=== PATIENT | male | born 1965 | race African-American/Black ===

== ENCOUNTER 2020-11-20 10:23 | Emergency (ER) | payer MEDICAID ==
[~2020-11-20] VITALS: Ht 172.7 cm; Wt 82.0 kg
[2020-11-20] MEDS ORDERED: SODIUM CHLORIDE 0.9% 1,000 ML IV ONE (11:00)
[2020-11-20 11:08] LABS: CHLORIDE 106 mEq/L (98-107)
[2020-11-20 11:12] LABS: HEMATOCRIT. 27.7 % (42.0-52.0); MEAN CORPUSCULAR HEMOGLOBIN 23.3 pg (28.0-32.0); MEAN CORPUSCULAR VOLUME 71.5 fL (80.0-94.0); MEAN PLATELET VOLUME 8.6 fl (7.4-10.4); PLATELET 105 x1000/uL (130-400); RED BLOOD CELL COUNT 3.88 mill/uL (4.7-6.1)
[2020-11-20 11:33] LABS: ETHANOL BLOOD 464 mg/dL
[2020-11-20 12:42] LABS: METHADONE URINE SCREEN NEGATIVE (NEGATIVE); OPIATES URINE SCREEN NEGATIVE (NEGATIVE)
[2020-11-20 12:43] LABS: *AMPHETAMINES SCREEN URINE NEGATIVE (NEGATIVE); *BARBITURATES SCREEN URINE NEGATIVE (NEGATIVE); *BENZODIAZEPINES SCREEN URINE NEGATIVE (NEGATIVE); *COCAINE SCREEN URINE NEGATIVE (NEGATIVE); CANNABINOID URINE SCREEN NEGATIVE (NEGATIVE)
[2020-11-20 12:44] LABS: PHENCYCLIDINE URINE SCREEN NEGATIVE (NEGATIVE)
[2020-11-20 12:44] LABS: PLATELET ESTIMATE DECREASED
[2020-11-20] MEDS ORDERED: HYDR-4001 MT (13:44)
[2020-11-20] MEDS ORDERED: IBUP-2028 MT (13:44)
[2020-11-20 17:47] VITALS: BP 117/78
== END 2020-11-20 18:25 | disposition home or self-care (01) ==
LOC: EDBD 10:23 → ER 10:23
DX: F10.129 Alcohol abuse with intoxication, unspecified (principal); Y90.8 Blood alcohol level of 240 mg/100 ml or more; S22.31XA Fracture of one rib, right side, initial encounter for closed fracture; W01.0XXA Fall on same level from slipping, tripping and stumbling without subsequent striking against object, initial encounter; Y93.89 Activity, other specified; Y92.89 Other specified places as the place of occurrence of the external cause
CPT/HCPCS: 36415; 70450; 71101; 72125; 80053; 80305; 80320; 85025; 93005; 96360; 96361; 99285; J7030; G0480

== ENCOUNTER 2024-07-07 13:10 | Emergency (ER) | payer MEDICAID ==
[~2024-07-07] VITALS: Ht 170.2 cm; Wt 73.0 kg
[~2024-07-07 13:10] MED LIST: HYDR-4001 MT; IBUP-2028 MT
[2024-07-07 13:13] VITALS: PULSE 92; TEMP 36.6; O2SAT 99
[2024-07-07 14:06] VITALS: BP 108/72; RESP 18
[2024-07-07] MEDS: LIDOCAINE 5% PATCH TOP SCH (14:06)
== END 2024-07-07 14:00 | disposition home or self-care (01) ==
LOC: ER 13:10
DX: F10.129 Alcohol abuse with intoxication, unspecified (principal); F20.9 Schizophrenia, unspecified; Y90.9 Presence of alcohol in blood, level not specified
CPT/HCPCS: 99283

== ENCOUNTER 2024-07-30 17:34 | Emergency (ER) | payer MEDICAID, OTHER ==
[~2024-07-30] VITALS: Ht 170.2 cm; Wt 70.0 kg
[2024-07-30 17:37] VITALS: O2SAT 100
[2024-07-30] MEDS ORDERED: METH-653 MT (20:33)
[2024-07-30] MEDS ORDERED: IBUP-2029 MT (20:33)
[2024-07-30 20:46] VITALS: BP 116/86; PULSE 85; RESP 16; TEMP 37.2; O2SAT 98
== END 2024-07-30 20:52 | disposition home or self-care (01) ==
LOC: ER 17:34
DX: S33.5XXA Sprain of ligaments of lumbar spine, initial encounter (principal); Z79.899 Other long term (current) drug therapy; Z86.59 Personal history of other mental and behavioral disorders; X58.XXXA Exposure to other specified factors, initial encounter; Y93.89 Activity, other specified; Y92.89 Other specified places as the place of occurrence of the external cause; Y99.8 Other external cause status
CPT/HCPCS: 99283

== ENCOUNTER 2024-08-29 00:36 | Emergency (ER) | payer OTHER ==
[~2024-08-29] VITALS: Ht 177.8 cm; Wt 85.0 kg
[~2024-08-29 00:36] MED LIST changes: +IBUP-2029 MT; +METH-653 MT
[2024-08-29 00:45] VITALS: BP 136/80; PULSE 78; RESP 16; TEMP 36.4; O2SAT 98
[2024-08-29 03:07] LABS: HEMATOCRIT. 29.6 % (42.0-52.0); HEMOGLOBIN. 9.5 g/dL (14.0-18.0); MEAN CORPUSCULAR HEMOGLOBIN 23.6 pg (28.0-32.0); MEAN CORPUSCULAR HGB CONC 32.1 g/dL (31.0-37.0); MEAN CORPUSCULAR VOLUME 73.5 fL (80.0-94.0); MEAN PLATELET VOLUME 7.2 fl (7.4-10.4); PLATELET 166 x1000/uL (130-400); RED BLOOD CELL COUNT 4.03 mill/uL (4.7-6.1); RED CELL DISTRIBUTION WIDTH 20.9 % (11.6-14.6); WHITE BLOOD COUNT 3.9 x1000/uL (4.5-11.0)
[2024-08-29 03:17] LABS: PROTHROMBIN TIME 10.7 sec (9.6-11.0)
[2024-08-29 03:21] LABS: CHLORIDE 106 mEq/L (98-107); POTASSIUM 3.8 mEq/L (3.5-5.1); SODIUM 141 mEq/L (136-145)
[2024-08-29 03:22] LABS: CALCIUM 8.7 mg/dL (8.7-10.4); CARBON DIOXIDE 25 mEq/L (21-32)
[2024-08-29 03:24] LABS: DIFFERENTIAL COMMENT 1
[2024-08-29 03:27] LABS: CREATININE 0.8 mg/dL (0.6-1.3); GLUCOSE 103 mg/dL (70-105); UREA NITROGEN BLOOD 8 mg/dL (9-23)
[2024-08-29 03:28] LABS: ETHANOL BLOOD 300 mg/dL (<10); TROPONIN I HIGH SENSITIVITY 5 ng/L (3.0-53)
[2024-08-29 03:29] LABS: ALANINE AMINOTRANSFERASE 61 IU/L (10-49); ASPARTATE AMINOTRANSFERASE 68 IU/L (<34)
[2024-08-29 03:30] LABS: BILIRUBIN TOTAL 0.3 mg/dL (0.1-1.0); PROTEIN TOTAL 7.5 g/dL (6.0-8.3)
[2024-08-29 04:16] LABS: BILIRUBIN DIRECT < 0.1 mg/dL (<=3.0)
[2024-08-29 16:56] LABS: ANISOCYTOSIS 1+; HYPOCHROMASIA 1+; MICROCYTOSIS 2+; PLATELET ESTIMATE NORMAL
== END 2024-08-29 05:07 | disposition home or self-care (01) ==
LOC: ER 00:42
DX: F10.129 Alcohol abuse with intoxication, unspecified (principal); D64.9 Anemia, unspecified; F20.9 Schizophrenia, unspecified; I25.2 Old myocardial infarction; J44.9 Chronic obstructive pulmonary disease, unspecified; Y90.8 Blood alcohol level of 240 mg/100 ml or more
CPT/HCPCS: 36415; 71045; 80048; 80076; 80320; 83880; 84484; 85025; 86850; 86900; 93005; 99285; G0480

== ENCOUNTER 2024-08-29 23:39 | Emergency (ER) | payer OTHER ==
[~2024-08-29] VITALS: Ht 175.3 cm; Wt 76.0 kg
[2024-08-29 23:45] VITALS: BP 129/89; PULSE 70; RESP 20; TEMP 36.5; O2SAT 98
== END 2024-08-30 07:25 | disposition left against medical advice (07) ==
LOC: ER 23:39
DX: M79.606 Pain in leg, unspecified (principal); Z53.21 Procedure and treatment not carried out due to patient leaving prior to being seen by health care provider

== ENCOUNTER 2024-09-09 18:06 | Emergency (ER) | payer OTHER ==
[~2024-09-09] VITALS: Ht 175.3 cm; Wt 74.0 kg
[2024-09-09 18:07] VITALS: O2SAT 99
[2024-09-09 19:03] LABS: CHLORIDE 110 mEq/L (98-107); SODIUM 143 mEq/L (136-145)
[2024-09-09 19:04] LABS: CARBON DIOXIDE 24 mEq/L (21-32)
[2024-09-09 19:05] LABS: HEMATOCRIT. 29.3 % (42.0-52.0); HEMOGLOBIN. 9.3 g/dL (14.0-18.0); MEAN CORPUSCULAR HEMOGLOBIN 23.8 pg (28.0-32.0); MEAN CORPUSCULAR HGB CONC 31.7 g/dL (31.0-37.0); MEAN CORPUSCULAR VOLUME 75.1 fL (80.0-94.0); MEAN PLATELET VOLUME 7.6 fl (7.4-10.4); PLATELET 210 x1000/uL (130-400); RED BLOOD CELL COUNT 3.91 mill/uL (4.7-6.1); RED CELL DISTRIBUTION WIDTH 20.5 % (11.6-14.6); WHITE BLOOD COUNT 3.7 x1000/uL (4.5-11.0)
[2024-09-09 19:09] LABS: CREATININE 0.9 mg/dL (0.6-1.3); GLUCOSE 97 mg/dL (70-105); UREA NITROGEN BLOOD 7 mg/dL (9-23)
[2024-09-09 19:12] LABS: DIFFERENTIAL COMMENT 1
[2024-09-09 19:22] LABS: ETHANOL BLOOD 444 mg/dL (<10)
[2024-09-09 19:31] LABS: *AMPHETAMINES SCREEN URINE NEGATIVE (NEGATIVE); *BARBITURATES SCREEN URINE NEGATIVE (NEGATIVE); *BENZODIAZEPINES SCREEN URINE NEGATIVE (NEGATIVE); *COCAINE SCREEN URINE NEGATIVE (NEGATIVE)
[2024-09-09 19:32] LABS: CANNABINOID URINE SCREEN NEGATIVE (NEGATIVE); ECSTASY MDMA SCREEN URINE NEGATIVE (NEGATIVE); METHADONE URINE SCREEN NEGATIVE (NEGATIVE); OPIATES URINE SCREEN NEGATIVE (NEGATIVE); PHENCYCLIDINE URINE SCREEN NEGATIVE (NEGATIVE)
[2024-09-09 20:24] LABS: ANISOCYTOSIS 2+; MICROCYTOSIS 2+; NUCLEATED RED BLOOD CELLS 1 /100 WBC; PLATELET ESTIMATE NORMAL; TARGET CELLS 1+
[2024-09-09 23:25] VITALS: BP 112/68; PULSE 81; RESP 13; TEMP 37; O2SAT 99
== END 2024-09-09 23:42 | disposition home or self-care (01) ==
LOC: ER 18:06
DX: T51.0X1A Toxic effect of ethanol, accidental (unintentional), initial encounter (principal); G92.9 Unspecified toxic encephalopathy; F20.9 Schizophrenia, unspecified; F17.200 Nicotine dependence, unspecified, uncomplicated; Z79.899 Other long term (current) drug therapy; Y92.89 Other specified places as the place of occurrence of the external cause
CPT/HCPCS: 36415; 80048; 80305; 80320; 85025; 99285; G0480

== ENCOUNTER 2024-10-01 21:46 | Emergency (ER) | payer OTHER ==
[~2024-10-01] VITALS: Ht 175.3 cm; Wt 66.0 kg
[2024-10-01 21:51] VITALS: BP 125/80; PULSE 70; RESP 18; TEMP 37.1; O2SAT 98
[2024-10-02] MEDS ORDERED: LIDO700A15 TP (02:55)
[2024-10-02] MEDS ORDERED: NAPR-1176 MT (02:55)
== END 2024-10-01 23:13 | disposition left against medical advice (07) ==
LOC: ER 21:46
DX: M79.605 Pain in left leg (principal); Z53.21 Procedure and treatment not carried out due to patient leaving prior to being seen by health care provider

== ENCOUNTER 2024-10-02 00:05 | Emergency (ER) | payer OTHER ==
[~2024-10-02] VITALS: Ht 170.2 cm; Wt 70.0 kg
[2024-10-02 00:20] VITALS: O2SAT 99
[2024-10-02] MEDS: CYCLOBENZAPRINE 10MG TABLET PO ONE (01:12)
[2024-10-02] MEDS: LIDOCAINE 5% PATCH TOP SCH (01:12)
[2024-10-02 01:13] VITALS: PULSE 73; RESP 18
[2024-10-02] MEDS: KETOROLAC 15MG/ML VIAL IM ONE (01:13)
[2024-10-02] MEDS ORDERED: LIDO700A15 TP (02:55)
[2024-10-02] MEDS ORDERED: NAPR-1176 MT (02:55)
== END 2024-10-02 03:08 | disposition home or self-care (01) ==
LOC: ER 00:05
DX: M54.50 Low back pain, unspecified (principal); F19.20 Other psychoactive substance dependence, uncomplicated; F20.89 Other schizophrenia; Z79.899 Other long term (current) drug therapy; Z79.1 Long term (current) use of non-steroidal anti-inflammatories (NSAID); X50.0XXA Overexertion from strenuous movement or load, initial encounter; Y93.89 Activity, other specified; Y92.89 Other specified places as the place of occurrence of the external cause; Y99.8 Other external cause status
CPT/HCPCS: 99283; 96372; J1885

== ENCOUNTER 2024-10-07 22:50 | Emergency (ER) | payer OTHER ==
[~2024-10-07] VITALS: Ht 172.7 cm; Wt 70.0 kg
[~2024-10-07 22:50] MED LIST changes: +LIDO-53 TP; +NAPR-1176 MT
[2024-10-07 22:51] VITALS: TEMP 36.6; O2SAT 100
[2024-10-08] MEDS: FLUORESCEIN SODIUM 1MG/STRIP BOTHEYE ONE (00:49)
[2024-10-08 03:09] VITALS: BP 110/77; PULSE 82; RESP 18; O2SAT 98
== END 2024-10-08 03:10 | disposition home or self-care (01) ==
LOC: ER 22:50
DX: T59.3X3A Toxic effect of lacrimogenic gas, assault, initial encounter (principal); X58.XXXA Exposure to other specified factors, initial encounter; Y93.89 Activity, other specified; Y92.89 Other specified places as the place of occurrence of the external cause; Y99.8 Other external cause status
CPT/HCPCS: 99283; 99284

== ENCOUNTER 2024-10-25 13:42 | Emergency (ER) | payer OTHER ==
[~2024-10-25] VITALS: Ht 172.7 cm; Wt 65.0 kg
[2024-10-25 13:50] VITALS: O2SAT 100
[2024-10-25 14:03] VITALS: BP 145/74; PULSE 86; RESP 18; TEMP 36.9; O2SAT 100
== END 2024-10-25 16:15 | disposition left against medical advice (07) ==
LOC: ER 13:42
DX: F20.9 Schizophrenia, unspecified (principal); I10 Essential (primary) hypertension; R68.89 Other general symptoms and signs; Z79.1 Long term (current) use of non-steroidal anti-inflammatories (NSAID); Z79.899 Other long term (current) drug therapy
CPT/HCPCS: 99283

== ENCOUNTER 2024-10-30 21:22 | Emergency (ER) | payer OTHER ==
[~2024-10-30] VITALS: Ht 165.1 cm; Wt 69.0 kg
[2024-10-30 21:24] VITALS: BP 133/88; PULSE 66; RESP 16; TEMP 36.7; O2SAT 98
== END 2024-10-31 01:58 | disposition home or self-care (01) ==
LOC: ER 21:37
DX: F10.129 Alcohol abuse with intoxication, unspecified (principal); G92.9 Unspecified toxic encephalopathy; I10 Essential (primary) hypertension; F20.9 Schizophrenia, unspecified; Y90.9 Presence of alcohol in blood, level not specified
CPT/HCPCS: 99283